=== PATIENT | female | born 1945 | race Caucasian/White ===

== ENCOUNTER 2018-01-18 15:42 | Emergency (ER) | payer MEDICARE, MEDICAID ==
[2018-01-18 15:52] VITALS: BP 146/86; PULSE 80; RESP 16; TEMP 97.2; O2SAT 100
[2018-01-18] MEDS ORDERED: Tdap Vaccine 0.5 ml Vial (10-64 yrs) IM ONE (16:27)
[2018-01-18] MEDS ORDERED: Tetanus/Diphtheria Toxoids 0.5 ml Syringe IM ONE (17:13)
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
[2018-01-18] MEDS ORDERED: Bacitracin 500 Units/gm Oint Foilpak UD TOP STA (18:09)
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
--- NOTE | 2018-01-19 11:01 | RAD ---
PROCEDURE: Bilateral hand radiographs. HISTORY: Trauma COMPARISON: None. FINDINGS: BONES: There is no acute displaced fracture or bone destruction. Bone alignment is normal. 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 SOFT TISSUES: The periarticular soft tissues are normal. OTHER FINDINGS: None. IMPRESSION: No acute fracture or dislocation.
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
== END 2018-01-18 19:05 | disposition home or self-care (01) ==
LOC: H.ER 15:42
DX: S00.91XA Abrasion of unspecified part of head, initial encounter (principal); S60.512A Abrasion of left hand, initial encounter; V03.10XA Pedestrian on foot injured in collision with car, pick-up truck or van in traffic accident, initial encounter; Y92.410 Unspecified street and highway as the place of occurrence of the external cause